=== PATIENT | male | born 1980 | race Caucasian/White ===

== ENCOUNTER 2023-09-15 19:11 | Emergency (ER) | payer OTHER, SELFPAY ==
--- NOTE | 2023-09-15 | ECG_ITS ---
Test Reason : JAW AND NECK PAIN Blood Pressure : / mmHG Vent. Rate : 106 BPM Atrial Rate : 106 BPM P-R Int : 144 ms QRS Dur : 084 ms QT Int : 330 ms P-R-T Axes : 050 018 030 degrees QTc Int : 438 ms Sinus tachycardia Otherwise normal ECG No previous ECGs available Referred By: Generic ED Physician Electronically Signed By:PETRONA MELGAR MD
--- NOTE | ~2023-09-15 | XR_ITS ---
EXAMINATION: XR CHEST CLINICAL INFORMATION: Chest pain. COMPARISON: None available. TECHNIQUE: Frontal view of the chest was obtained. FINDINGS: Low lung volumes with mild bibasilar subsegmental atelectasis. No focal infiltrate, pleural effusion or pneumothorax. Normal heart size. No acute osseous findings. Visualized upper abdomen is within normal limits. XR/XR chest 1V IMPRESSION: Low lung volumes with mild bibasilar subsegmental atelectasis.
[2023-09-15 19:35] VITALS: BP 132/76; BP 150/88; PULSE 103; PULSE 108; RESP 18; TEMP 36.8; O2SAT 95; BMI 32.9
[2023-09-15 19:37] LABS: MANUAL DIFF FLAG NO
[2023-09-15 19:39] LABS: Basophils Percent Auto 0.1 % (0-2); Eosinophils Absolute Auto 0.1 X10*3/uL (0.0-0.4); Hematocrit 33.2 % (42.0-52.0); Hemoglobin 11.5 g/dl (14.0-18.0); Imm Gran Abs Auto 0.07 X10*3/uL (0.00-0.03); Lymphocytes Absolute Auto 1.5 X10*3/uL (1.2-4.9); Lymphocytes Percent Auto 21.1 % (20-40); Mean Corpuscular HGB Conc 34.6 g/dl (31.0-36.0); Mean Corpuscular Hemoglobin 28.8 pg (27.0-33.0); Mean Platelet Volume 9.1 fL (9.4-12.4); Monocytes Absolute Auto 0.7 X10*3/uL (0.1-1.2); Monocytes Percent Auto 9.4 % (2-11); Neutrophils Absolute Auto 4.7 x10*3/uL (2.0-8.3); Neutrophils Percent Auto 67.4 % (45-73); Platelet Count 149 X10*3/uL (160-400); Red Cell Distribution Width 12.9 % (11.0-16.0)
[2023-09-15 19:49] VITALS: PULSE 103
--- NOTE | 2023-09-15 20:02 | ED.NECK ---
HPI - Neck Pain/Injury General Chief Complaint: Neck Pain/Injury Stated Complaint: neck and jaw pain Time Seen by Provider: 09/15/23 19:26 Source: patient Mode of arrival: EMS History of Present Illness HPI Narrative: 43-year-old male who presents with history of 1 week of chest pain and 3 days dizziness/intermittent shortness of breath/left neck and jaw pain that is tender when pressure is applied. He denies any fevers or chills. Related Data Previous Rx's Medication Instructions Recorded amoxicillin 875 mg-potassium 1 tab PO BID 7 days #14 tabs 09/16/23 clavulanate 125 mg tablet Allergies Allergy/AdvReac Type Severity Reaction Status Date / Time No Known Allergies Allergy Verified 09/15/23 20:16 Review of Systems Review of Systems: Positives and negatives as stated in HPI [facility] Past Medical History Source: nursing notes reviewed Social History Social History Advance Directives: No Advance Directives Information Provided: No Physical Exam Vital Signs: Vital Signs: Last Vital Signs Temp 98.0 F 09/15/23 23:30 Pulse 105 H 09/15/23 23:30 Resp 16 09/15/23 23:30 BP 146/79 H 09/15/23 23:30 Pulse Ox 98 09/15/23 23:30 O2 Del Method Room Air 09/15/23 23:30 BMI result Body Mass Index 32.9 VITAL SIGNS: Reviewed. GENERAL: Well developed, well nourished, in no acute distress. HEAD: Normocephalic/atraumatic EYES: PERRLA, EOMI EARS: Ext canals without abnormality, TMs non-bulging and non-erythematous NOSE: Nares patent bilateral OROPHARYNX: no oral lesions noted, posterior pharynx clear but erythematous with noted tonsillar enlargement/erythema but no exudates noted, no trismus NECK: Supple, + adenopathy (left suboccipital/post auricular) LUNGS: Normal breath sounds. No adventitious sounds or accessory muscle use. CARDIOVASCULAR: Regular rate and rhythm without noted murmurs ABDOMEN: Soft, non-tender, non-distended with bowel sounds. MUSCULOSKELETAL: No tenderness, deformities, or effusions noted on gross inspection. EXTREMITIES: No cyanosis, clubbing or edema. SKIN: Inspection of the skin reveals no rashes NEUROLOGIC: Alert and oriented x 4. Strength and sensation to light touch were grossly intact x 4. Medications Administered Discontinued Medications Generic Name Dose Route Start Last Admin Trade Name Nidhi PRN Reason Stop Dose Admin Acetaminophen 975 mg 09/15/23 21:21 09/15/23 21:38 Acetaminophen 325 Mg Tablet PO 09/15/23 21:22 975 mg ONCE ONE Administration Sodium Chloride 1,000 mls @ 999 mls/hr 09/15/23 21:45 09/15/23 23:21 Ns IV 09/15/23 22:45 Infused .Q1H1M SANGEETHA Infusion Ceftriaxone Sodium 1 gm/ 50 mls @ 100 mls/hr 09/15/23 22:36 09/15/23 23:57 Sodium Chloride IV 09/15/23 23:05 Infused ONCE ONE Infusion Ibuprofen 600 mg 09/15/23 21:21 09/15/23 21:38 Ibuprofen 600 Mg Tablet PO 09/15/23 21:22 600 mg ONCE ONE Administration Ondansetron HCl 4 mg 09/15/23 22:36 09/15/23 23:26 Ondansetron Hcl 4 Mg/2 Ml Vial IVPUSH 09/15/23 22:37 4 mg ONCE ONE Administration Medical Decision Making Medical Decision Making MDM Narrative: 43-year-old male with history and clinical presentation, DDX: Viral syndrome, pneumonia, AOM, strep pharyngitis. On clinical exam I palpated along the left angle of the jaw as well as across the maxillary sinus and a over the temporal region there was no pain elicited, therefore I have low clinical suspicion for dental association although not completely ruled out, there is also no pain on manipulation of the left ear but there is noted adenopathy in the postauricular distribution that I think is causing majority of patient's pain. He will receive IV fluids for his noted hyperglycemia that has no elevation of beta hydroxybutyrate, he will also receive IV antibiotics and received combination analgesics. I have low clinical suspicion for a meningitis as everything is localized to the left posterior ear, there is no evidence of gingival swelling. Reviewed all investigations and hematologic indices are negative for leukocytosis or left shift, patient does have a noted thrombocytopenia there is no evidence of petechiae are purpura on clinical exam and no reports of bleeding. Patient does demonstrated a normocytic anemia and again this is not associated with any complaints of bleeding. Coagulation studies are within normal limits. Chemistry studies demonstrate a mild pseudohyponatremia secondary to hyperglycemia, no evidence of EMILIANO and electrolyte or liver enzyme abnormalities. High sensitivity troponin is undetectable in beta hydroxybutyrate is within normal limits. Viral testing is negative for COVID-19 and states strep. Chest x-ray demonstrates low lung volumes but otherwise no infiltrate and otherwise my interpretation is in agreement with radiology's impression. EKG does not demonstrate STEMI. INTERVENTIONS: Combination analgesics, antibiotics, 1 L of IV fluids. On re-evaluation patient is feeling improved, will obtain repeat point of care. Differential Diagnosis Differential Diagnoses: The differential diagnosis associated with the presentation includes Please see the discussion above Admission/Observation Consideration of admission/observation: Escalation of care including admission/observation considered Please see the discussion above Lab Data MDM Lab Attestation statement: I reviewed the patient's lab results. Please see the discussion above 09/15/23 19:32 09/15/23 19:32 Labs: Lab Results 09/15/23 09/15/23 09/15/23 Range/Units 19:32 19:48 21:44 WBC 7.0 (4.8-10.8) X10*3/uL RBC 4.00 L (4.60-5.80) X10*6/uL Hgb 11.5 L (14.0-18.0) g/dl Hct 33.2 L (42.0-52.0) % MCV 83.0 (80.0-98.0) fL MCH 28.8 (27.0-33.0) pg MCHC 34.6 (31.0-36.0) g/dl RDW 12.9 (11.0-16.0) % Plt Count 149 L (160-400) X10*3/uL MPV 9.1 L (9.4-12.4) fL Immature Gran % (Auto) 1.0 H (0.0-0.4) % Neut % (Auto) 67.4 (45-73) % Lymph % (Auto) 21.1 (20-40) % Terrell % (Auto) 9.4 (2-11) % Eos % (Auto) 1.0 (0-4) % Baso % (Auto) 0.1 (0-2) % Lymph # (Auto) 1.5 (1.2-4.9) X10*3/uL Terrell # (Auto) 0.7 (0.1-1.2) X10*3/uL Eos # (Auto) 0.1 (0.0-0.4) X10*3/uL Baso # (Auto) 0.0 (0.0-0.2) X10*3/uL Abs Immat Gran (auto) 0.07 H (0.00-0.03) X10*3/uL Absolute Neuts (auto) 4.7 (2.0-8.3) x10*3/uL Absolute Nucleated RBC 0.000 (0.0-0.012) X10*3/uL Nucleated RBC % (auto) 0.0 (0.0-0.2) /100WBC PT 10.4 L (11.1-13.3) SEC INR 0.9 (0.9-1.1) APTT 28.8 (26.0-36.4) SEC Sodium 132 L (135-145) mmol/L Potassium 4.9 (3.3-5.1) mmol/L Chloride 93 L (96-108) mmol/L Carbon Dioxide 26 (22-29) mmol/L Anion Gap 18 (12-20) BUN 17 H (9-16) mg/dL Creatinine 0.86 (0.5-1.4) mg/dL Estim Creat Clear Calc 120.5 Estimated GFR > 60 Random Glucose 457 H* (60-115) mg/dL Calcium 9.4 (8.4-10.2) mg/dL Total Bilirubin 0.3 (0.0-1.0) mg/dL AST 30 (5-37) U/L ALT 29 (0-40) U/L Alkaline Phosphatase 98 (39-117) U/L Troponin I High Sens < 2.7 (<3.5-35.0) ng/L Total Protein 7.2 (6.5-8.0) g/dL Albumin 3.8 (3.5-5.0) g/dL Beta-Hydroxybutyrate 0.22 (0.02-0.27) mmol/L COVID-19 (DIRK) Negative (Negative) COVID-19 Clin Com See Note S. pyogenes GrpA HEBERT Negative (Negative) Independent Interpretation I performed an independent interpretation of an: EKG Interpretation: Sinus tachycardia, HR-106, no STEMI, IA/QRS/QTC is within normal limits. Radiology Impression Discussion of test interpretation with radiology: I have reviewed the radiologist's reading. Radiologist Impression: Please see the discussion above Chronic Conditions Patient?s care impacted by: Diabetes Critical Care Time Critical Care Time Critical Care Time: Yes Total Critical Care Time: 30 Attestation: I personally attest to this time spent taking care of the patient. Discharge Plan Discharge Clinical Impression: Lymphadenitis Patient Disposition: Xfer Other Instructions: Lymphadenopathy (ED) Additional Instructions: 1. Resume all home medications as prescribed to include diabetic medication. 2. Complete the entire course of antibiotics as prescribed. Return to the ER for any worsening or new symptoms. Prescriptions: New amoxicillin-pot clavulanate 875-125 mg tablet 1 tab PO BID 7 Days Qty: 14 0RF
[2023-09-15 20:05] LABS: Troponin-I High Sensitivity < 2.7 ng/L (<3.5-35.0)
--- NOTE | 2023-09-15 20:07 | MHC.EDTECH ---
Patient refused POC. Nurse aware.
[2023-09-15 20:12] LABS: Anion Gap 18 (12-20)
[2023-09-15 20:16] LABS: COVID-19 Test Negative (Negative); IDNOW Serial# BCCEAD1C; INTERNATIONAL NORM RATIO 0.9 (0.9-1.1); Prothrombin Time 10.4 SEC (11.1-13.3)
[2023-09-15 20:18] LABS: Partial Thromboplastin Time 28.8 SEC (26.0-36.4)
[2023-09-15 20:22] LABS: Alanine Aminotransferase 29 U/L (0-40); Albumin Level 3.8 g/dL (3.5-5.0); Alkaline Phosphatase 98 U/L (39-117); Aspartate Amino Transferase 30 U/L (5-37); Bilirubin Total 0.3 mg/dL (0.0-1.0); Blood Urea Nitrogen 17 mg/dL (9-16); Calcium 9.4 mg/dL (8.4-10.2); Carbon Dioxide 26 mmol/L (22-29); Chloride 93 mmol/L (96-108); Creatinine Clr Calc Pharmacy 120.5; Estimated Glomerular Filt Rate > 60; Glucose Random 457 mg/dL (60-115); Potassium 4.9 mmol/L (3.3-5.1); Sodium 132 mmol/L (135-145); Total Protein 7.2 g/dL (6.5-8.0)
[2023-09-15] MEDS: Ibuprofen 600 MG TABLET PO (21:38)
[2023-09-15] MEDS: Acetaminophen 325 MG TABLET 975 MG PO (21:38)
[2023-09-15] MEDS: 0.9 % Sodium Chloride 1,000 ML 999 ML IV (21:39)
[2023-09-15 22:00] VITALS: BP 148/86; PULSE 97; RESP 14; TEMP 36.8; O2SAT 97
[2023-09-15 22:04] LABS: IDNOW Serial# 08D9AD1C; Strep A Nucleic Acid Negative (Negative)
[2023-09-15 22:09] LABS: Beta-Hydroxybutyrate 0.22 mmol/L (0.02-0.27)
--- NOTE | 2023-09-15 22:21 | PC.NURSE ---
PT adair from [facility] on a section [facility] with complaints 1 week of chest pain and 3 days of, dizziness, intermittent SOB, left neck and jaw pain that hurts on palpation. Pt has several of cavities that need filling. PT POC in EMS 489. PT does not check his blood sugars regularly and is on glipizide. 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 IV line placed, EKG completed and labs drawn, pt changed over, 1:1 sitter at bedside for safety. Medications administered as per JAN. Call ladd within reach. Plan of care ongoing
[2023-09-15] MEDS: ondansetron HCL 4 MG/2 ML VIAL IVPUSH (23:26)
[2023-09-15] MEDS: cefTRIAXone sodium 1 GM in 0.9 % Sodium Chloride 50 ML IV (23:26)
[2023-09-15 23:30] VITALS: BP 146/79; PULSE 105; RESP 16; TEMP 36.7; O2SAT 98
--- NOTE | 2023-09-15 23:31 | MHC.EDTECH ---
This pct assumed care of pt at 2300 ,vitals taken ,pt sleeping at this time ,call ladd within Pt reach .
--- NOTE | 2023-09-15 23:50 | MHC.EDTECH ---
Patient had 2 Pudding and 2 jello and 2 apple juice for snack .
--- NOTE | 2023-09-16 00:19 | PC.NURSE ---
this RN asked pt if we can do a poc glucose and patient refused. this RN explained the importance of checking his sugar and giving insulin for the high sugars. pt responded thanks but no thanks, i don't do insulin or needles This RN suggested getting blood from iv line and giving iv insulin but pt refused. aware. pt received 1 liter fluids in the ER. discharge back to [facility]. waiting for ambulance transport.
--- NOTE | 2023-09-16 00:19 | MHC.EDTECH ---
Pt refused to have POC rechecked, Provider and RN aware.
--- NOTE | 2023-09-16 00:51 | MHC.EDTECH ---
call out to [facility] at 0023 to book transport for pt back to [facility], Estimated eta given was around 0200
== END 2023-09-16 01:45 | disposition other institution (70) ==
PROVIDERS: Emergency Provider Student in an Organized Health Care Education/Training Program
DX: I88.9 Nonspecific lymphadenitis, unspecified (principal); R68.84 Jaw pain; M54.2 Cervicalgia; R06.02 Shortness of breath; R00.0 Tachycardia, unspecified; R07.89 Other chest pain; Z11.52 Encounter for screening for COVID-19; Z20.822 Contact with and (suspected) exposure to COVID-19; Z79.899 Other long term (current) drug therapy
CPT/HCPCS: 36415; 71045; 80053; 82010; 84484; 85025; 85610; 85730; 87635; 87651; 93005; 96361; 96365; 96375; 99284; 99285; J0696; J2405